=== PATIENT | female | born 1990 | race Caucasian/White ===

== ENCOUNTER 2017-01-24 18:08 | Outpatient (CLI) | payer MEDICAID ==
[2017-01-24] MEDS ORDERED: TERBUTALINE 1 ML ONE (18:31)
--- NOTE | 2017-01-24 20:04 | RADRPT ---
PROCEDURE: OB ultrasound for biophysical profile CLINICAL INDICATION: Decreased movement. TECHNIQUE: Multiple sonographic images of the pelvis were obtained. Transabdominal and transvagin al views views of the gravid uterus are available for review. The images were reviewed on a PACS [employer]. COMPARISON: None FINDINGS: breathing movement = 2/2 tone = 2/2 motion = 2/2 Amniotic fluid = 2/2 MORTEZA = 13.5 cm Single live intrauterine in cephalic presentation with cardiac activity (137 bpm). Anterior placenta, grade 2. The cervix is closed, measuring 2.5 cm. IMPRESSION: 1. Single viable intrauterine gestation. 2. Biophysical profile = 8/8. 3. MORTEZA = 13.5 cm. 4. Closed cervix measuring 2.5 cm. RPTAT: HTAR .Terry Cuevas MD, Date Time Electronically viewed and signed by .Terry Cuevas MD, on 01/24/2017 20:03 .R/
--- NOTE | 2017-01-24 21:25 | PN ---
Triage Information Date/Time 01/24/17 Reason for visit: DFM Weeks of Gestation 33w4d /Para Diabetes: none Hypertention: none Additional information pelvic pain leaking fluid Objective BP 97/56 [id number] temp 98.6 Heart Rate: 130's Heart Rate Comments reactive strip Contractions: None Exam ROM plus neg Results/Medications Results 24 hrs Laboratory Tests Test 01/24/17 18:20 Membranes Rupture NEGATIVE Medications none Imaging Results BPP 8/8 CVL 2.5 AFI13.5 Disposition: Discharge Assessment/Plan IUP 33w4d ligament pain FM improved No srom Plan discharge home RTH prn with routine labor instructions avoid sudden movement and climbing upstairs F/u at clinic SERENA SELLERS MD Jan 24, 2017 21:25
--- NOTE | 2017-01-25 01:10 | TRIAGE ---
OB Triage Datetime Report Generated by CPN: 01/25/2017 01:10 Datetime: 01/24/2017 21:00 Labor Evaluation Frequency: 0 Monitor Mode: External Heart Rate FHR Baseline Rate: 135 Monitor Mode: External US FHR Baseline Changes: No Baseline Change Variability: Moderate 6-25 bpm Accelerations: 15X15 Decelerations: None Category: Category I Datetime: 01/24/2017 20:00 Labor Evaluation Frequency: 0 Monitor Mode: External Heart Rate FHR Baseline Rate: 135 Monitor Mode: External US FHR Baseline Changes: No Baseline Change Variability: Moderate 6-25 bpm Accelerations: 15X15 Decelerations: None Category: Category I Datetime: 01/24/2017 19:21 Stage of : OB Triage Assessment Type: Triage Maternal Assessment Level of Consciousness: Fully Conscious DTR's/Clonus: DTRs 2+; No Clonus Headache: Denies Blurred Vision: No Respiratory Effort: Unlabored; Regular Rhythm; Equal Expansion Breath Sounds, Left: Clear and Equal Breath Sounds, Right: Clear and Equal Nausea/Vomiting: Denies RUQ Epigastric Pain: Denies Lower Extremities Edema: None Degree: None Upper Extremities Edema: None Degree: None Facial Edema: None Fall Risk Assessment History of Falling: (0) No Secondary Diagnosis: (0) No Ambulatory Aid: (0) Bedrest/Nurse Assist IV Therapy: (0) No Gait: (0) Normal/Bedrest/Immobile Mental Status: (0) Oriented to Own Ability Fall Score: 0 Fall Risk Score Definition: No Risk: No action required Pain Assessment Pain Scale: 5 Datetime: 01/24/2017 19:13 Stage of : OB Triage Datetime: 01/24/2017 19:06 Stage of : OB Triage Maternal Assessment Level of Consciousness: Fully Conscious DTR's/Clonus: DTRs 1+ Headache: Denies Breath Sounds, Left: Clear and Equal Breath Sounds, Right: Clear and Equal Nausea/Vomiting: Denies RUQ Epigastric Pain: Denies Labor Evaluation Frequency: NONE Monitor Mode: External Resting Tone Ballard: Relaxed Heart Rate FHR Baseline Rate: 135 Monitor Mode: External US Variability: Moderate 6-25 bpm Accelerations: 15X15 Decelerations: None Category: Category I Pain Assessment Pain Scale: 0 Pain Presence: None/Denies Pain Type: N/A Pain Goal: 3 Vaginal Exam Membrane Status: Intact Datetime: 01/24/2017 18:43 Maternal Assessment Level of Consciousness: Fully Conscious DTR's/Clonus: DTRs 1+ Headache: Denies Blurred Vision: No Respiratory Effort: Unlabored Breath Sounds, Left: Clear and Equal Breath Sounds, Right: Clear and Equal Nausea/Vomiting: Denies RUQ Epigastric Pain: Denies Facial Edema: None Labor Evaluation Frequency: NONE Monitor Mode: External Resting Tone Ballard: Relaxed Heart Rate FHR Baseline Rate: 135 Monitor Mode: External US Variability: Moderate 6-25 bpm Accelerations: 15X15 Decelerations: None Category: Category I Pain Assessment Pain Scale: 0 Pain Presence: None/Denies Pain Type: N/A Pain Goal: 3 Vaginal Exam Membrane Status: Intact Datetime: 01/24/2017 18:15 Assessment Type: Triage EGA: 33.4 Maternal Assessment Level of Consciousness: Fully Conscious DTR's/Clonus: DTRs 2+; No Clonus Headache: Denies Blurred Vision: No Respiratory Effort: Unlabored; Regular Rhythm; Equal Expansion Breath Sounds, Left: Clear and Equal Breath Sounds, Right: Clear and Equal Nausea/Vomiting: Denies RUQ Epigastric Pain: Denies Lower Extremities Edema: None Degree: None Upper Extremities Edema: None Degree: None Facial Edema: None Fall Risk Assessment History of Falling: (0) No Secondary Diagnosis: (0) No Ambulatory Aid: (0) Bedrest/Nurse Assist IV Therapy: (0) No Gait: (0) Normal/Bedrest/Immobile Mental Status: (0) Oriented to Own Ability Fall Score: 0 Fall Risk Score Definition: No Risk: No action required Datetime: 01/24/2017 17:55 Time of Arrival: 01/24/2017 17:55 Arrived By: Ambulatory Arrived From: Office Chief Complaint: PT CAME IN FROM CLINIC C/O PELVIC PAIN, DFM AND LEAKING FLUID SINCE TODAY. DENIES ANY UC'S AT THIS TIME. PLACED ON EFM X 2 Movement: Present Contractions: Denies/Absent Rupture of Membranes: Denies Vaginal Discharge: Denies Recent Sexual Intercouse: Denies Abdominal Trauma: Not Applicable Additional Patient Complaints: NONE Time Provider Notified: 01/24/2017 18:00 Provider Notified: TRIP Initial Plan: NST, BPP, CX LENGHT AND ROM +
== END 2017-01-24 21:25 | disposition home or self-care (01) ==
LOC: OBT 18:08 → L-D 18:10 → OBT 21:25
PROVIDERS: ATTEND Obstetrics & Gynecology
DX: O36.8130 Decreased fetal movements, third trimester, not applicable or unspecified (principal); Z3A.33 33 weeks gestation of pregnancy
CPT/HCPCS: 36415; 76817; 76818; 84112; 96372; J3105; Z7500; G0463

== ENCOUNTER 2017-01-31 17:41 | Inpatient (IN) | payer MEDICAID ==
[~2017-01-31] VITALS: Ht 160 cm; Wt 59.4 kg
[2017-01-31 17:57] VITALS: Ht 160 cm; Wt 59.4 kg
[2017-01-31] MEDS ORDERED: PREN-93 PO (17:57)
[2017-01-31 17:58] VITALS: BP 117/63; PULSE 98; RESP 18
[2017-01-31] MEDS ORDERED: MAGNESIUM SULFATE 4 GM/100 ML 100 ML IV ONE (18:30)
[2017-01-31] MEDS ORDERED: ONDANSETRON 4 MG INJ IV PRN (18:30)
[2017-01-31] MEDS ORDERED: AMPICILLIN 2 GM/NS (PMX) 100 ML IV ONE (18:30)
[2017-01-31] MEDS ORDERED: ACETAMINOPHEN 325 MG TAB PO PRN (18:30)
--- NOTE | 2017-01-31 18:46 | RADRPT ---
PROCEDURE: US OB. CLINICAL INDICATION: Size and dates TECHNIQUE: Multiple sonographic images of the pelvis and gravid uterus were obtained. The images were reviewed on a PACS workstation. COMPARISON: US PELVIS 01/24/2017 FINDINGS: There is a single viable intrauterine gestation. Cardiac activity is present with 122 beats per min brigid. There is a vertex presentation. The placenta is anterior. There is no evidence for an abruption or placenta previa. Measurements were made in order to determine age. The results are as follows: BPD =8.3 cm HC =30.1 cm AC =27.9 cm FL =6.4 cm Estimated gestational age of approximately 32 weeks and 6 days based on ultrasound measurements. Clinical age: 34 weeks and 1 day. The estimated date of delivery is 03/22/17, based on ultrasound measurements. The EFW = 1977 g, 7.9%, based on LMP age. RPTAT: AA IMPRESSION: Single viable intrauterine gestation of approximately 32 weeks and 6 days based on ultrasound measu rements. .Jerald Mace MD, Date Time Electronically viewed and signed by .Jerald Mace MD, on 01/31/2017 18:45 .S/
--- NOTE | 2017-01-31 18:50 | TRIAGE ---
OB Triage Datetime Report Generated by CPN: 01/31/2017 18:50 Datetime: 01/31/2017 17:55 Assessment Type: Triage Maternal Assessment Level of Consciousness: Fully Conscious DTR's/Clonus: DTRs 2+; No Clonus Headache: Denies Blurred Vision: No Respiratory Effort: Unlabored; Regular Rhythm; Equal Expansion Breath Sounds, Left: Clear and Equal Breath Sounds, Right: Clear and Equal Nausea/Vomiting: Denies RUQ Epigastric Pain: Denies Lower Extremities Edema: None Degree: None Upper Extremities Edema: None Degree: None Facial Edema: None Fall Risk Assessment History of Falling: (0) No Secondary Diagnosis: (0) No Ambulatory Aid: (0) Bedrest/Nurse Assist IV Therapy: (0) No Gait: (0) Normal/Bedrest/Immobile Mental Status: (0) Oriented to Own Ability Fall Score: 0 Fall Risk Score Definition: No Risk: No action required Datetime: 01/31/2017 17:50 Labor Evaluation Monitor Mode: External Heart Rate Monitor Mode: External US Datetime: 01/31/2017 17:46 Time of Arrival: 01/31/2017 17:36 EGA: 34.1 Arrived By: Ambulatory Arrived From: Office Chief Complaint: PT SENT IN FROM CLINIC FOR EVAL. OF POSSIBLE PTL/SROM Movement: Present Contractions: Denies/Absent Rupture of Membranes: Unsure Vaginal Bleeding: None Vaginal Discharge: Denies Recent Sexual Intercouse: Denies Abdominal Trauma: Not Applicable Patient Complaints: None Time Provider Notified: 01/31/2017 18:15 Provider Notified: DELSHAD Initial Plan: BPP/EFW/ROM PLUS/ Datetime: 01/24/2017 19:21 Fall Score: 0 Fall Risk Score Definition: No Risk: No action required Datetime: 01/24/2017 18:15 EGA: 33.1 Fall Score: 0 Fall Risk Score Definition: No Risk: No action required
[2017-01-31] MEDS: LACTATED RINGER'S 1,000 ML IV SCH ×2 (19:24→22:23)
--- NOTE | 2017-01-31 19:30 | RADRPT ---
PROCEDURE: US biophysical profile. CLINICAL INDICATION: labor at 34 weeks gestational age. TECHNIQUE: Multiple sonographic images of the uterus were obtained. The images were revi ewed on a PACS workstation. COMPARISON: No prior studies are available for comparison. FINDINGS: There is a single live intrauterine gestation. heart rate is 146 beats per minute. The position is cephalic. The placenta is anterior grade II with no abruption or previa. The MORTEZA is 11.2 cm. (Normal = 5-20 cm.) Breathing Movement: 2 Gross Body Movement: 2 Tone: 2 Qualitative Amniotic Fluid Volume: 2 TOTAL: 8 IMPRESSION: 1. The biophysical score is 8/8. RPTAT: QQ .Ricky Blackman MD, Date Time Electronically viewed and signed by .Ricky Blackman MD, on 01/31/2017 19:29 .R/
[2017-01-31 19:38] LABS: ADD UMIC YES; UR AMORPHOUS CRYSTAL FEW /HPF (NONE SEEN); UR ASCORBIC ACID NEGATIVE (NEGATIVE); UR BILIRUBIN (Dip) NEGATIVE (NEGATIVE); UR BLOOD (Dip) NEGATIVE (NEGATIVE); UR CLARITY CLOUDY (CLEAR); UR COLOR YELLOW (YELLOW); UR GLUCOSE (Dip) NEGATIVE (NEGATIVE); UR KETONES (Dip) NEGATIVE (NEGATIVE); UR LEUKOCYTE ESTERASE (Dip) NEGATIVE Leu/ul (NEGATIVE); UR NITRITE (Dip) NEGATIVE (NEGATIVE); UR RBC 1 /HPF (0-5); UR SPECIFIC GRAVITY (Dip) 1.014 (1.003-1.030); UR TOTAL PROTEIN (Dip) NEGATIVE (NEGATIVE); UR UROBILINOGEN (Dip) NEGATIVE (NEGATIVE)
[2017-01-31] MEDS: BETAMET NA PHOS/AC(6 MG/ML) 5ML INJ IM SCH (19:57)
[2017-01-31] MEDS: MAGNESIUM SULFATE 20 GM/500 ML 500 ML IV SCH (20:49)
[2017-01-31] MEDS ORDERED: LACTATED RINGER'S 1,000 ML IV SCH (21:43)
[2017-01-31 21:57] LABS: BASOPHILS % 0.2 % (0.0-2.0); EOSINOPHILS # 0.1 10^3/ul (0.0-0.5); EOSINOPHILS % 0.5 % (0.0-7.0); HEMATOCRIT 34.4 % (37.0-47.0); HEMOGLOBIN 11.6 g/dl (12.0-16.0); LYMPHOCYTES % 19.3 % (15.0-51.0); MEAN CORPUSCULAR HEMOGLOBIN 30.4 pg (29.0-33.0); MEAN CORPUSCULAR HGB CONC 33.7 g/dl (32.0-37.0); MEAN CORPUSCULAR VOLUME 90.3 fl (82.0-101.0); MEAN PLATELET VOLUME 11.8 fl (7.4-10.4); MONOCYTE # 0.7 10^3/ul (0.3-0.9); MONOCYTES % 6.9 % (0.0-11.0); NEUTROPHIL # 7.7 10^3/ul (1.6-7.5); NEUTROPHILS % 72.8 % (39.0-77.0); PLATELET COUNT 233 10^3/UL (140-415); RED BLOOD COUNT 3.81 10^6/ul (4.20-5.40); RED CELL DISTRIBUTION WIDTH 12.5 % (11.5-14.5); WHITE BLOOD COUNT 10.6 10^3/ul (4.8-10.8)
[2017-01-31] MEDS ORDERED: CARBOPROST 250 MCG INJ IM PRN (22:00)
[2017-01-31] MEDS ORDERED: LIDOCAINE 1% (MPF) 30 ML INJ INJ PRN (22:00)
[2017-01-31] MEDS ORDERED: IBUPROFEN 600 MG TAB PO PRN (22:00)
[2017-01-31] MEDS ORDERED: OXYTOCIN 30 UNITS/LR 500 ML IV PRN (22:00)
[2017-01-31] MEDS ORDERED: METHYLERGONOVINE 0.2 MG INJ IM PRN (22:00)
[2017-01-31] MEDS ORDERED: MISOPROSTOL 200 MCG TAB PR PRN (22:00)
[2017-01-31] MEDS ORDERED: OXYTOCIN 30 UNITS/LR 500 ML IV SCH ×2 (22:00)
[2017-01-31 22:01] LABS: INR 0.97
[2017-01-31 22:02] LABS: PARTIAL THROMBOPLASTIN TIME 24.5 Sec (25.0-35.0)
[2017-01-31] MEDS ORDERED: FENTAnyl 2MCG/ML-ROPIV 0.2% 100 ML ONE (23:33)
[2017-01-31] MEDS: AMPICILLIN 1 GM/NS (PMX) 50 ML IV SCH (23:50)
[2017-02-01] MEDS ORDERED: ONDANSETRON 4 MG INJ IV PRN
[2017-02-01] MEDS ORDERED: NALOXONE (0.4 MG/ML) INJ IV PRN
[2017-02-01] MEDS ORDERED: AMPICILLIN 1 GM/NS (PMX) 50 ML IV SCH (02:00)
[2017-02-01] MEDS: AMPICILLIN 1 GM/NS (PMX) 50 ML IV SCH ×5 (04:22→21:29)
[2017-02-01] MEDS: FENTAnyl 2MCG/ML-ROPIV 0.2% 100 ML BAG EPI SCH ×2 (07:42→16:05)
[2017-02-01] MEDS: LACTATED RINGER'S 1,000 ML IV SCH ×2 (08:12)
[2017-02-01] MEDS: MAGNESIUM SULFATE 20 GM/500 ML 500 ML IV SCH ×2 (08:15→19:11)
--- NOTE | 2017-02-01 14:31 | HP ---
Date/Time of Note Date/Time of Note DATE: 02/01/17 TIME: 14:22 OB - History Hx of Present Chief Complaint: leakge of fluid Estimated Due Date: Mar 13, 2017 : 4 Para: 3 Spontaneous : 0 Therapeutic : 0 Care: Good Care Ultrasounds: Abnormal US findings Abnormal Ultrasound Findings: IUGR Obstetrical Complications: Growth Restriction Medical Complications: None Past Family/Social History * Past Medical, Surgical, Family and Obstetric Histories reviewed from chart. GBS Status: Unknown OB Admission Exam Vital Signs Vital Signs Vital Signs Date Time Temp Pulse Resp B/P Pulse Ox O2 Delivery O2 Flow Rate FiO2 01/31/17 17:58 98.4 98 18 117/63 96 Room Air Physical Exam HEENT: WNL Heart: Rhythm Normal Lungs: Clear, Equal Abdomen: WNL Extremities: Normal Reflexes: Normal Cervical Dilatation: 3cm Effacement: 75% Station: -1 Membranes: Ruptured Amniotic Fluid: Clear Heart Rate: 120's Accelerations: Accelerations Present Decelerations: No Decelerations Varibility: Moderate Last 72 hours Lab Results CBC & BMP 01/31/17 19:20 Magnesium Level Test 02/01/17 00:32 02/01/17 05:39 02/01/17 12:00 Magnesium Level 7.2 *H 6.0 *H 5.8 *H OB Assessment/Plan Reason for admission: rupture of membranes Plan: Other Other plan: IV magnesium sulfate IM betamethasone IV ampicillin BOOKER DOMINIQUE MD Feb 01, 2017 14:31
[2017-02-01] MEDS: BETAMET NA PHOS/AC(6 MG/ML) 5ML INJ IM SCH (20:00)
[2017-02-01] MEDS: DEXTROSE 5%-LR 1,000 ML IV PRN (20:23)
[2017-02-02] MEDS: AMPICILLIN 1 GM/NS (PMX) 50 ML IV SCH ×7 (00:53→23:13)
[2017-02-02] MEDS: FENTAnyl 2MCG/ML-ROPIV 0.2% 100 ML BAG EPI SCH ×2 (02:19→11:45)
[2017-02-02] MEDS: LACTATED RINGER'S 1,000 ML IV SCH ×3 (06:16→18:24)
[2017-02-02] MEDS: MAGNESIUM SULFATE 20 GM/500 ML 500 ML IV SCH ×2 (06:19→10:24)
--- NOTE | 2017-02-02 12:23 | CONS ---
DATE OF ADMISSION: 01/31/2017 DATE OF CONSULTATION: 02/02/2017 HISTORY OF PRESENT ILLNESS: The patient is at 34 weeks and 3 days with premature rupture of membrane on 01/30/2017. RECOMMENDATIONS: Delivery is recommended as soon as possible. heart tone is category 2 with minimal variability and occasional accelerations. Dictated By: NATHALIE MASON/STU Conf#: [id number] DID#: [id number]
[2017-02-02] MEDS: DEXTROSE 5%-LR 1,000 ML IV PRN ×2 (13:09→19:05)
--- NOTE | 2017-02-02 19:28 | QN ---
Documentation Comment Patient has been off magnesium sulfate. Cervix 3 cm. Patient was evaluated by Perinatologist and recommendation is to deliver the patine by primary due to Category II tracing. Patient is extensively counseled about the need for delivery of the baby and the risks of continued . Patient states she understands and declines delivery by primary at this time. BOOKER DOMINIQUE MD Feb 02, 2017 19:28
[2017-02-03] MEDS: LACTATED RINGER'S 1,000 ML IV SCH ×5 (01:00→18:19)
[2017-02-03] MEDS ORDERED: CEFAZOLIN 2 GM/50 ML (PMX) 50 ML IVPB ONE (01:30)
[2017-02-03] MEDS ORDERED: morphine SULFATE/PF (10 MG/10 ML) INJ ONE (01:35)
--- NOTE | 2017-02-03 01:38 | QN ---
Documentation Comment Patient now states that she agrees to delivery by primary . Risks, benefits and alternatives were explained samm the patient who stated she understood and gave informed consent for the procedure. BOOKER DOMINIQUE MD Feb 03, 2017 01:38
[2017-02-03] MEDS ORDERED: FENTAnyl 50 MCG/ML VIAL ONE (02:06)
[2017-02-03] MEDS ORDERED: OXYTOCIN 30 UNITS/LR 500 ML IV SCH (02:19)
--- NOTE | 2017-02-03 02:22 | OPPN ---
Date/Time of Note Date/Time of Note DATE: 02/03/17 TIME: 02:21 Operative Report Planned Procedure Procedure date Feb 03, 2017 Procedure(s) c/s Performed by see signature line Shirt Presser Dr Weston Pre-procedure diagnosis Category II tracing Anesthesia Type: spinal Post-Procedure Post-procedure diagnosis Same Findings Live Baby [], Apgars [] and [], weight [], position [], [] presentation []cord. Estimated Blood Loss: 500 - 600 mls Specimen(s) placenta Grafts/Implant(s) none Complication(s) none BOOKER DOMINIQUE MD Feb 03, 2017 02:22
[2017-02-03] MEDS ORDERED: OXYTOCIN 30 UNITS/LR 500 ML IV PRN (02:30)
[2017-02-03] MEDS ORDERED: ONDANSETRON 4 MG INJ IV PRN ×2 (02:30)
[2017-02-03] MEDS ORDERED: METOCLOPRAMIDE 10 MG INJ IV PRN (02:30)
[2017-02-03] MEDS ORDERED: ZOLPIDEM 5 MG TAB PO PRN (02:30)
[2017-02-03] MEDS: AMPICILLIN 1 GM/NS (PMX) 50 ML IV SCH (02:30)
[2017-02-03] MEDS ORDERED: MISOPROSTOL 200 MCG TAB PR PRN (02:30)
[2017-02-03] MEDS ORDERED: DIPHENHYDRAMINE 50 MG INJ IV PRN ×2 (02:30)
[2017-02-03] MEDS ORDERED: KETOROLAC 30 MG INJ IV PRN (02:30)
[2017-02-03] MEDS ORDERED: NALOXONE (0.4 MG/ML) INJ IV PRN (02:30)
[2017-02-03] MEDS ORDERED: HYDROmorphONE (0.2 MG/ML) 10ML SYG IV PRN ×2 (02:30)
[2017-02-03] MEDS ORDERED: ALBUTEROL 0.083% (NEB) 2.5 MG/3 ML AMP HHN PRN (02:30)
[2017-02-03] MEDS ORDERED: LANOLIN 7 GM TUBE TOP PRN (02:30)
[2017-02-03] MEDS ORDERED: METHYLERGONOVINE 0.2 MG INJ IM PRN (02:30)
[2017-02-03] MEDS ORDERED: FENTAnyl 50 MCG/ML VIAL IV PRN ×3 (02:30)
[2017-02-03] MEDS ORDERED: CARBOPROST 250 MCG INJ IM PRN (02:30)
[2017-02-03] MEDS ORDERED: HYDROmorphONE 0.5 MG/0.5 ML SYG IV PRN ×2 (02:30)
--- NOTE | 2017-02-03 02:35 | QN ---
Documentation Comment patient requested for 2nd opinion for management of her situation 34w 4d with pprom IUGR cat II tracing her OB was reluctant to induce labor with cat II tracing suggest c/s since Dr lee suggested to deliver kurtis patient chose to wait but now she decided to have c/s kurtis after discuss situation in detail regard to IUGR and PPROM and poss infection by delaying delivery etc informed her OB and requested to prepare primary c/s SERENA SELLERS MD Feb 03, 2017 02:35
[2017-02-03 05:15] VITALS: BP 124/81; PULSE 64; RESP 18
[2017-02-03 05:45] VITALS: BP 99/62; PULSE 70; RESP 18
[2017-02-03] MEDS ORDERED: PHENYLephrine (100 MCG/ML) 5ML SYG ONE (07:00)
[2017-02-03] MEDS ORDERED: OXYTOCIN 30 UNITS/LR 500 ML BAG IV ONE (07:00)
[2017-02-03] MEDS ORDERED: EPHEDrine SULFATE 50 MG/5 ML SYG ONE (07:00)
[2017-02-03 08:00] VITALS: BP 102/60; PULSE 76; RESP 18
[2017-02-03] MEDS: SENNA/DOCUSATE NA (8.6MG/50MG) TAB PO SCH ×2 (08:30→20:56)
[2017-02-03 13:00] VITALS: BP 104/57; PULSE 70; RESP 18
[2017-02-03 15:45] VITALS: BP 102/70; PULSE 71; RESP 18
[2017-02-03] MEDS: KETOROLAC 30 MG INJ IV PRN (17:50)
[2017-02-03 19:45] VITALS: BP 100/70; PULSE 66; RESP 18
[2017-02-04 00:15] VITALS: BP 97/63; PULSE 66; RESP 18
[2017-02-04] MEDS: KETOROLAC 30 MG INJ IV PRN (01:15)
[2017-02-04] MEDS ORDERED: OXYCODONE/ACETAMINOPHEN (5/325) TAB PO PRN (02:30)
--- NOTE | 2017-02-04 03:46 | OPR ---
DATE OF OPERATION: 02/03/2017 PREOPERATIVE DIAGNOSES: at 34 weeks and 4 days with spontaneous rupture of membranes and category 2 heart tracing remote from delivery and intrauterine growth restriction. POSTOPERATIVE DIAGNOSES: at 34 weeks and 4 days with spontaneous rupture of membranes and category 2 heart tracing remote from delivery and intrauterine growth restriction. OPERATION PERFORMED: Primary low transverse section. SURGEON: Booker Blake MD RAILROAD COOK: Flaca Weston MD ANESTHESIA: Spinal. ANESTHESIOLOGIST: Dr. Downs. PROCEDURE: The patient was taken to the operating room and placed on the operating table. After maloney ccessful spinal anesthesia was given, the patient was placed in supine position. The area was prepa red and draped in the usual sterile fashion. Spinal anesthesia was tested and was satisfactory. Us ing a scalpel, Pfannenstiel incision was made about 2 fingerbreadths above the symphysis pubis. The incision was carried to the fascia. The fascia was incised and extended bilaterally with Whitt scis sors. Two Alex's were used to separate the fascia from the muscle. The muscle was dissected down to peritoneum. The peritoneum was secured with 2 Kellys and incised with Metzenbaum scissors. Usi ng a scalpel, a small transverse incision was made in the lower segment of the uterus. Upon enterin g the uterine cavity, bandage scissors were inserted to extend the incision bilaterally, curved up. Baby was delivered from cephalic presentation. After suctioning clear of amniotic fluid, the baby was handed off to the team in attendance. Apgars were 8 and 9. The placenta was delivered without difficulty. The uterus was closed with #1 Monocryl continuous locked. After assuring hemo stasis, both ovaries and tubes were inspected, all looked normal. The peritoneum was closed with 2- 0 Vicryl continuous. The fascia was closed with #1 Vicryl continuous in 2 segments. Subcutaneous t issue was reapproximated with 2-0 plain. The skin was closed with flash. ESTIMATED BLOOD LOSS: 500 mL. COUNTS: All counts were correct. Dictated By: BOOKER BLAKE MD GD/NTS Conf#: [id number] DID#: [id number] CC: FLACA WESTON MD;*EndCC*
[2017-02-04 04:00] VITALS: BP 99/54; PULSE 67; RESP 18
[2017-02-04] MEDS: IBUPROFEN 800 MG TAB PO SCH ×3 (05:35→22:11)
[2017-02-04 08:15] VITALS: BP 88/51; PULSE 73; RESP 18
[2017-02-04 08:47] LABS: BASOPHILS % 0.2 % (0.0-2.0); EOSINOPHILS # 0.1 10^3/ul (0.0-0.5); EOSINOPHILS % 0.7 % (0.0-7.0); HEMATOCRIT 26.3 % (37.0-47.0); HEMOGLOBIN 8.6 g/dl (12.0-16.0); LYMPHOCYTES # 2.1 10^3/ul (0.8-2.9); LYMPHOCYTES % 17.5 % (15.0-51.0); MEAN CORPUSCULAR HEMOGLOBIN 30.9 pg (29.0-33.0); MEAN CORPUSCULAR HGB CONC 32.7 g/dl (32.0-37.0); MEAN CORPUSCULAR VOLUME 94.6 fl (82.0-101.0); MEAN PLATELET VOLUME 10.8 fl (7.4-10.4); MONOCYTE # 0.9 10^3/ul (0.3-0.9); MONOCYTES % 7.7 % (0.0-11.0); NEUTROPHIL # 8.9 10^3/ul (1.6-7.5); NEUTROPHILS % 73.5 % (39.0-77.0); PLATELET COUNT 198 10^3/UL (140-415); RED BLOOD COUNT 2.78 10^6/ul (4.20-5.40); RED CELL DISTRIBUTION WIDTH 13.3 % (11.5-14.5); WHITE BLOOD COUNT 12.1 10^3/ul (4.8-10.8)
[2017-02-04] MEDS: SENNA/DOCUSATE NA (8.6MG/50MG) TAB PO SCH ×2 (09:23→21:04)
[2017-02-04] MEDS: OXYCODONE/ACETAMINOPHEN (5/325) TAB PO PRN ×2 (15:28→20:12)
[2017-02-04 15:55] VITALS: BP 100/52; PULSE 63; RESP 18
--- NOTE | 2017-02-04 17:51 | QN ---
Documentation Comment No complaint Afebrile VSS Abdomen soft ND POD #1 Stable Ambulate Advance diet. BOOKER DOMINIQUE MD Feb 04, 2017 17:51
[2017-02-04] MEDS: FERROUS SULFATE (EC) 325 MG TAB PO SCH (21:04)
[2017-02-05] MEDS: OXYCODONE/ACETAMINOPHEN (5/325) TAB PO PRN ×3 (04:15→23:36)
[2017-02-05] MEDS: IBUPROFEN 800 MG TAB PO SCH ×3 (06:17→22:09)
[2017-02-05 08:00] VITALS: BP 102/56; PULSE 59; RESP 18
[2017-02-05] MEDS: SENNA/DOCUSATE NA (8.6MG/50MG) TAB PO SCH ×2 (08:34→22:09)
[2017-02-05] MEDS: FERROUS SULFATE (EC) 325 MG TAB PO SCH ×3 (08:34→22:09)
--- NOTE | 2017-02-05 15:19 | DS ---
Date/Time of Note Date/Time of Note DATE: 02/05/17 TIME: 15:17 Obstetrical Discharge Record Final Diagnosis Final Diagnosis: delivered Section Section: Primary Primary Indication Category II tracing Complications Complications: Low weight 1500-2500gms Complications Labor Tocolytics: Magnesium Sulfate Rupture of Membranes: Yes Gestational Age at Rupture 34 weeks Condition on Discharge Physical Assessment Voiding: Yes Bowel Movement: Yes Breast: Soft, non-tender, Filling Fundus: Firm Abdomen and Incision: Incision intact Calf Tenderness: No Patient Condition: Stable BOOKER DOMINIQUE MD Feb 05, 2017 15:19
[2017-02-05 16:13] VITALS: BP 104/57; PULSE 95; RESP 19
[2017-02-05 20:29] VITALS: BP 107/57; PULSE 78; RESP 18
[2017-02-06 04:20] VITALS: BP 98/58; PULSE 59; RESP 18
[2017-02-06] MEDS: IBUPROFEN 800 MG TAB PO SCH ×2 (06:00→13:22)
[2017-02-06] MEDS: OXYCODONE/ACETAMINOPHEN (5/325) TAB PO PRN ×2 (06:16→10:40)
[2017-02-06 08:34] VITALS: BP 100/57; PULSE 70; RESP 18
[2017-02-06] MEDS: SENNA/DOCUSATE NA (8.6MG/50MG) TAB PO SCH (08:49)
[2017-02-06] MEDS: FERROUS SULFATE (EC) 325 MG TAB PO SCH ×2 (08:50→12:38)
[2017-02-06] MEDS ORDERED: DIPHTH/TET/ACEL PERTUSS (ADULT) 0.5 ML VIAL IM* ONE (09:00)
== END 2017-02-06 14:35 | disposition home or self-care (01) | DRG 765 ==
LOC: OBT 17:41 → L-D 17:43 → OBT 18:15 → L-D 19:18 → PP1 02-03 05:15
PROVIDERS: ADMIT Obstetrics & Gynecology; ATTEND Obstetrics & Gynecology
PROC: 3E033VJ Introduction of Other Hormone into Peripheral Vein, Percutaneous Approach (ICD-10-PCS; 2017-02-03)
PROC: 10D00Z1 Extraction of Products of Conception, Low, Open Approach (ICD-10-PCS; principal; 2017-02-03 01:30)
DX: O60.14X0 Preterm labor third trimester with preterm delivery third trimester, not applicable or unspecified (principal); O36.5930 Maternal care for other known or suspected poor fetal growth, third trimester, not applicable or unspecified; O76 Abnormality in fetal heart rate and rhythm complicating labor and delivery; Z3A.34 34 weeks gestation of pregnancy; Z37.0 Single live birth
CPT/HCPCS: 62319; 76815; 76818; 81001; 83735; 84112; 85025; 85610; 85730; 86592; 86900; 86901; 87086; 87340; 88307; 90715; 99464; G0463; J0290; J0690; J0702; J1885; J2274; J2370; J2590; J3010; J3475; J7120